=== PATIENT | male | born 1960 | race Caucasian/White ===

== ENCOUNTER 2023-03-25 16:12 | Emergency (ER) | payer MEDICARE, SELFPAY ==
--- NOTE | ~2023-03-25 | CT_ITS ---
Non-contrast CT scan of the Abdomen and Pelvis Clinical indication: Right flank pain Technique: 2.5 mm axial scans were obtained through the abdomen and pelvis without intravenous or or al contrast. Dose reduction technique was used on this scan by utilizing automated exposure control a nd iterative reconstruction technique. The dose-length product (DLP) was 566.97 mGy-cm. Findings: Images through the lung bases reveal no abnormalities. Possible small nonobstructing left renal stones measuring 2 mm. No right renal stones. No ureteral st ones or hydronephrosis on either side. The liver, spleen, pancreas, and adrenals appear normal. Questionable gallstones. There are atheroscl erotic calcifications of the aorta. There is no evidence of bowel obstruction. Images through the pelvis were performed. There is no evidence of ascites or lymphadenopathy. Urinary bladder unremarkable. Prostate gland and seminal vesicles are unremarkable. Impression: Small nonobstructing left renal stones. No other significant findings. Reviewed, dictated and finalized at [facility]. Impression: Small nonobstructing left renal stones. No other significant findings.
--- NOTE | 2023-03-25 16:18 | ED.MALEGU ---
HPI - Male Genitourinary General Chief complaint: Urogenital-Male Stated complaint: UTI, Kidney stones Time Seen by Provider: 03/25/23 16:18 Source: patient Mode of arrival: ambulatory History of Present Illness HPI Narrative: 62-year-old male with a history of cerebral palsy with left lower extremity weakness S, degenerative disc disease involving the cervical and the lumbar region, STI( Chlamydia and gonorrhea) 6 months ago, COPD secondary to smoking, kidney stones 1st noted 2 months ago, UTI 1 month ago for which he received Levaquin 500 for 5 days, presents to the ER with -- right flank pain radiating to the right lumbar region. -- no fever or chills. No dysuria or hematuria. -- 40 lb weight loss over the past 6 months -- multiple chigger bites in his legs patient seen a urologist for his dysuria and flank pain and had a normal PSA. he had a recent negative HIV, herpes testing. MD Complaint: possible STD exposure Onset (ago): day(s) ( 2 days ago) Duration: constant Quality: aching Relieving factors: none Exacerbating factors: none Related Data Sexually active: Yes Allergies Allergy/AdvReac Type Severity Reaction Status Date / Time Anesthetics - Amide Type - Allergy Loss of Verified 03/25/23 16:34 Select A Consciousness Review of Systems Review of Systems: 40 lb weight loss over the past 6 months All systems reviewed & are unremarkable except as noted in HPI and below Constitutional: Constitutional: Reports as per HPI and Reports no additional constitutional complaints Eyes: Eyes: Reports as per HPI and Reports no additional eye complaints ENT: Reports system reviewed and no additional complaints, except as documented and Reports as per HPI Cardiovascular: Cardiovascular: Reports as per HPI and Reports no additional cardiovascular complaints Respiratory: Respiratory: Reports as per HPI, Reports no additional respiratory complaints, Reports cough and Reports dyspnea Comments: chronic cough with sputum production. Gastrointestinal: Gastrointestinal: Reports as per HPI and Reports no additional gastrointestinal complaints Comments: Right flank pain Genitourinary: Genitourinary: Reports no additional male genitourinary complaints and Reports as per HPI Musculoskeletal: Musculoskeletal: Reports no additional musculoskeletal complaints and Reports back pain Comments: chronic pain in the lumbar and the cervical region. Integumentary/Breasts: Skin/Breast: Reports system reviewed and no additional complaints, except as docu and Reports as per HPI Comments: multiple chigger bites in both his legs Neurologic: Reports system reviewed and no additional complaints, except as documented and Reports as per HPI Comments: History of cerebral palsy with wasting of the left lower extremity. Psychiatric: Psychiatric: Reports no additional psychiatric complaints and Reports as per HPI Endocrine: Endocrine: Reports no additional endocrine complaints and Reports as per HPI Hematologic/Lymphatic: Hematologic/Lymphatic: Reports no additional hematologic/lymphatic complaints and Reports as per HPI Allergic/Immunologic: Allergic/Immunologic: Reports no additional allergic/immunologic complaints and Reports as per HPI PMFSH Past Medical History Medical History (Updated 03/25/23 @ 18:47 by Clem Kramer MD) Asthma exacerbation in COPD Dental root implant present Kidney stones Social History Social History (Updated 03/25/23 @ 16:29 by Clem Kramer MD) Social History: smoker Exam Const: General: cooperative Nutritional Appearance: average body habitus HENMT: Head: normal to inspection, normocephalic and atraumatic Ears: hearing grossly normal bilaterally Face/Nose/Sinus: Normal external nose present Face and sinus: normal facial exam and sinuses nontender Mouth: Yes Normal oral and palatal mucosa present and Yes lip normal Teeth and gingiva: other ( Francia
[2023-03-25 16:29] VITALS: BP 130/84; PULSE 101; RESP 20; TEMP 36.7; O2SAT 95
[2023-03-25 17:29] LABS: Basophils Absolute Auto 0.05 K/mm3 (0.00-0.10); Basophils Percent Auto 0.5 % (0.0-1.0); Eosinophils Absolute Auto 0.54 K/mm3 (0.02-0.50); Eosinophils Percent Auto 5.5 % (1.0-6.0); Hematocrit 39.3 % (40.0-54.0); Immature Granulocyte Absolute 0.04 K/mm3 (0.00-0.00); Immature Granulocyte Percent A 0.4 % (0.0-0.0); Immature Platelet Fraction Pct 3.4 % (1.0-7.0); Lymphocytes Absolute Auto 2.87 K/mm3 (1.10-4.50); Lymphocytes Percent Auto 29.5 % (18.0-42.0); Mean Corpuscular HGB Conc 35.6 g/dL (32.0-36.0); Mean Corpuscular Hemoglobin 30.4 pg (27.0-31.0); Mean Corpuscular Volume 85.4 fL (78.0-102.0); Monocytes Absolute Auto 0.88 K/mm3 (0.10-0.90); Neutrophils Absolute Auto 5.4 K/mm3 (1.7-7.2); Neutrophils Percent Auto 55.1 % (50.0-70.0); Platelet Count Result 121 K/mm3 (150-420); Red Cell Distribution Width 12.5 % (11.6-14.4); White Blood Count 9.7 K/mm3 (4.8-10.8)
[2023-03-25 17:36] LABS: Prothrombin Time 10.9 Seconds (9.50-12.10)
[2023-03-25 17:37] LABS: Alanine Aminotransferase 37 U/L (16-63); Albumin Level 3.8 g/dL (3.4-5.0); Alkaline Phosphatase 112 U/L (46-116); Anion Gap 11 mmol/L (8-16); Aspartate Amino Transferase 26 U/L (15-37); Bilirubin,Total 0.5 mg/dL (0.00-1.00); Blood Urea Nitrogen 16 mg/dL (7-18); Calcium 9.1 mg/dL (8.5-10.1); Carbon Dioxide 28 mmol/L (21-32); Chloride 105 mmol/L (98-108); Estimated CRCL calculation 69 ml/min; Estimated Glomerular Filt Rate > 60; Glucose 101 mg/dL (70-99); Lipase 21 U/L (16-77); Osmolality Calculated 299 mOsm/kg (285-295); Potassium 3.3 mmol/L (3.5-5.1); Sodium 144 mmol/L (136-145); Total Protein 7.4 g/dL (6.4-8.2)
[2023-03-25 17:45] LABS: Lactic Acid Reflex 0.5 mmol/L (0.4-2.0)
[2023-03-25 17:54] LABS: Appearance Urine Clear (Clear); Bilirubin Urine Negative (Negative); Blood Urine Negative (Negative); Color Urine Yellow (Yellow); Glucose Urine UA Negative (Negative); Ketones Urine Negative (Negative); Leukocyte Esterase Ur Negative LEU/UL (Negative); Nitrate Urine Negative (Negative); Protein Urine Negative (Negative); Specific Grav Ur >= 1.030 (1.010-1.020)
[2023-03-25 17:56] LABS: Add Urine Microscopic? NO
[2023-03-25] MEDS: POTASSIUM BICARBONATE 25 MEQ TABEF PO (18:57)
[2023-03-25 19:06] VITALS: BP 143/85; PULSE 94; RESP 20; TEMP 36.9; O2SAT 99
--- NOTE | 2023-03-29 12:40 | PC.NURSE ---
urine for trich/yong reviewed. no action needed. not detected results
== END 2023-03-25 19:06 | disposition home or self-care (01) ==
PROVIDERS: Emergency Provider Internal Medicine Critical Care Medicine
DX: R30.0 Dysuria (principal); R10.9 Unspecified abdominal pain; D69.6 Thrombocytopenia, unspecified; R63.4 Abnormal weight loss; J44.9 Chronic obstructive pulmonary disease, unspecified; F17.200 Nicotine dependence, unspecified, uncomplicated; Z68.26 Body mass index [BMI] 26.0-26.9, adult; Z86.19 Personal history of other infectious and parasitic diseases
CPT/HCPCS: 36415; 74176; 80053; 81003; 83605; 83690; 85025; 85055; 85610; 87491; 87591; 99284; A9270